=== PATIENT | female | born 2000 | race Caucasian/White ===

== ENCOUNTER 2022-04-06 22:56 | Emergency (ER) | payer MEDICAID ==
[~2022-04-06] VITALS: Ht 157.5 cm; Wt 50.0 kg
[2022-04-06 23:00] VITALS: BP 145/88
[2022-04-06] MEDS ORDERED: DIPHTH,PERTUSS(ACELL),TET TOX 0.5 ML DISP.SYRIN. VAX IM ONE (23:30)
[2022-04-06] MEDS ORDERED: LIDOCAINE 1%/EPI 1:100,000 20 ML VIAL. INJ ONE (23:30)
--- NOTE | 2022-04-06 23:33 | PHYS DOC ---
Past Medical History Past Surgical History: No Surgical History Smoking Status: Current Every Day Smoker Alcohol Use: None General Adult EDM: Chief Complaint: LACERATION/AVULSION HPI: HPI: Patient is a 21 year old female patient with history of narcotic addiction presenting to the ED today with scalp laceration. Patient states she stood up and hit her right scalp on a counter edge. Denies any loss of consciousness. Denies any neck pain. Reports taking street fentanyl/Percocet prior to coming to the ED Review of Systems: Review of Systems: Constitutional: Denies fever or chills. [] Eyes: Denies change in visual acuity. [] HENT: Denies nasal congestion or sore throat. [] Respiratory: Denies cough or shortness of breath. [] Cardiovascular: Denies chest pain or edema. [] GI: Denies abdominal pain, nausea, vomiting, bloody stools or diarrhea. [] : Denies dysuria. [] Musculoskeletal: Denies back pain or joint pain. [] Integument: Reports scalp laceration Neurologic: Denies headache, focal weakness or sensory changes. [] Psychiatric: Reports narcotic addiction Heart Score: C/O Chest Pain: N/A Risk Factors: Risk Factors: DM, Current or recent (<one month) smoker, HTN, HLP, family history of CAD, obesity. Risk Scores: Score 0 - 3: 2.5% MACE over next 6 weeks - Discharge Home Score 4 - 6: 20.3% MACE over next 6 weeks - Admit for Clinical Observation Score 7 - 10: 72.7% MACE over next 6 weeks - Early Invasive Strategies Current Medications: Current Medications Medications (Trade) Dose Ordered Sig/Arabella Start Time Stop Time Status Last Admin Dose Admin Diphtheria/ Tetanus/Acell Pertussis (Boostrix) 0.5 ml ONCE ONCE 04/06/22 23:30 04/06/22 23:31 Lidocaine/ Epinephrine (LIDOCAINE 1%-EPI 1:100,000 Multi-Dose) 20 ml 1X ONCE 04/06/22 23:30 04/06/22 23:31 Allergies: Allergies: Allergies Coded Allergies Type Severity Reaction Last Updated Verified aspirin Allergy Unknown 04/06/22 Yes Physical Exam: PE: Constitutional: Well developed, well nourished, no acute distress, non-toxic appearance. [] HENT: Normocephalic, atraumatic, bilateral external ears normal, oropharynx moist, no oral exudates, nose normal. Skin: Right parietal scalp with a laceration approximately 3 cm long Back: No tenderness, no CVA tenderness. [] Extremities: No tenderness, no cyanosis, no clubbing, ROM intact, no edema. [] Neurologic: Alert and oriented X 3, normal motor function, normal sensory function, no focal deficits noted. [] Psychologic: Flat affect, multiple scarring on bilateral forearm from previous self-mutilation/cutting Current Patient Data: Vital Signs: Vital Signs Date Time Temp Pulse Resp B/P (MAP) Pulse Ox O2 Delivery O2 Flow Rate FiO2 04/06/22 23:00 98.6 92 17 145/88 (107) 99 Room Air 98.6 EKG: EKG: [] Radiology/Procedures: Radiology/Procedures: Laceration/Wound Repair Wound Location: scalp Wound's Depth, Shape: Approximately 3 cm long, vertical laceration Wound Explored: clean Irrigated w/ Saline (ccs): 20 Betadine Prep?: N/A Anesthesia: 1% of lidocaine with epinephrine Volume Anesthetic (ccs): Proximately 5 cc Wound Repaired With: 7 keren Progress : Wound was left open to air Course & Med Decision Making: Course & Med Decision Making Pertinent Labs and Imaging studies reviewed. (See chart for details) This a 21-year-old female patient presented to the ED today with scalp lacerat ion. She verbalized use of street percocet/fentanyl and desire to get help. Pamela from the PAT team talked to patient and provided resources to her. Patient's laceration was closed as noted in procedures. Tetanus was updated. Wound care instructions and return precautions provided Sonam Disclaimer: Sonam Disclaimer: This electronic medical record was generated, in whole or in part, using a voice recognition dictation system. Departure Departure Impression: Primary Impression: Scalp laceration Qualified Codes: S01.01XA - Laceration without foreign body of scalp, initial encounter Additional Impression: Drug use Disposition: HOME / SELF CARE / HOMELESS Condition: STABLE Patient Instructions: Laceration Care, Adult Additional Instructions: You have a laceration on the scalp that was closed with keren. You can shower and wash your hair. Do not soak your laceration site. Apply Neosporin to the area twice a day for 7 days. Monitor the area for any signs of infection including but not limited to increased redness, warmth, yellow drainage from the area and return to the ED if they occur. Follow-up with your primary care doctor or the emergency room in 7 to 10 days for keren to be removed BOSTON RANDOLPH APRN April 06, 2022 23:33
== END 2022-04-07 00:47 | disposition home or self-care (01) ==
LOC: ER 22:56
DX: S01.01XA Laceration without foreign body of scalp, initial encounter (principal); F17.200 Nicotine dependence, unspecified, uncomplicated; F11.20 Opioid dependence, uncomplicated; Z88.6 Allergy status to analgesic agent; W22.8XXA Striking against or struck by other objects, initial encounter; Y93.89 Activity, other specified; Y92.89 Other specified places as the place of occurrence of the external cause; Y99.8 Other external cause status
CPT/HCPCS: 12002; 90471; 90715; 99283; J3490